=== PATIENT | male | born 1980 | race Caucasian/White ===

== ENCOUNTER 2021-12-28 07:39 | Emergency (ER) | payer SELFPAY ==
[~2021-12-28] VITALS: Ht 188 cm; Wt 113.4 kg
[2021-12-28 07:39] VITALS: BP_SYST 162
--- NOTE | 2021-12-28 07:40 | NUR ---
Patient to ER bed H1 to gown for evaluation. Side rails up.
--- NOTE | 2021-12-28 07:42 | NUR ---
ER at bedside examining patient.
[2021-12-28 07:56] VITALS: BP_SYST 162
--- NOTE | 2021-12-28 07:56 | NUR ---
Patient given written and verbal discharge instructions and verbalizes understanding. ER MD discussed with patient the results and treatment provided. Patient in stable condition. ID arm band removed. NO Rx of given. Patient educated on pain management and to follow up with PMD. Pain Scale 0. Opportunity for questions provided and answered. Medication side effect fact sheet provided.
== END 2021-12-28 07:56 ==
LOC: SED 07:39
DX: M79.18 Myalgia, other site (principal)
CPT/HCPCS: 99283